=== PATIENT | male | born 1985 | race Caucasian/White ===

== ENCOUNTER 2017-07-04 17:49 | Emergency (ER) | payer OTHER ==
[~2017-07-04] VITALS: Ht 175.3 cm; Wt 68.0 kg
[~2017-07-04 17:49] MED LIST: NORCO 5-325 TA1 EACH PO
[2017-07-04] MEDS ORDERED: BUTALB-ACETAMI1 EACH PO (18:07)
[2017-07-04] MEDS ORDERED: AMANTADINE100 MG PO (18:07)
[2017-07-04] MEDS ORDERED: LEVETIRACETAM500 MG PO (18:08)
[2017-07-04] MEDS ORDERED: TRAZODONE HCL50 MG PO (18:08)
[2017-07-04] MEDS ORDERED: CITALOPRAM HBR20 MG PO (18:08)
[2017-07-04] MEDS ORDERED: MELATONIN1 MG PO (18:09)
[2017-07-04] MEDS ORDERED: NORCO 5-325 TA1 EACH PO (20:37)
== END 2017-07-04 20:50 | disposition home or self-care (01) ==
LOC: ED 17:49
DX: S09.90XA Unspecified injury of head, initial encounter (principal); W22.8XXA Striking against or struck by other objects, initial encounter; Z87.891 Personal history of nicotine dependence; Z79.899 Other long term (current) drug therapy
CPT/HCPCS: 70450; 80053; 81001; 83605; 85025; 85610; 85730; 96361; 96374; 99284; G0480; J2405; J7030

== ENCOUNTER 2018-03-18 14:12 | Emergency (ER) | payer OTHER ==
[~2018-03-18] VITALS: Ht 175.3 cm; Wt 90.7 kg
[~2018-03-18 14:12] MED LIST changes: +AMANTADINE100 MG PO; +BUTALB-ACETAMI1 EACH PO; +CITALOPRAM HBR20 MG PO; +LEVETIRACETAM500 MG PO; +MELATONIN1 MG PO; +TRAZODONE HCL50 MG PO
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
--- OUTSIDE RECORDS SUMMARY | 2018-03-18 14:40 | XMS | Clinical Summary ---
Demographics + + + | Address | [address] | | | [place] [address] | + + + | Home Phone | | + + + | Preferred Language | Unknown | + + + | Marital Status | | + + + | Sikh Affiliation | Unknown | + + + | Race | Unknown | + + + | Ethnic Group | Unknown | + + + Author + + + | Author | [facility] [employer] | + + + | Organization | [facility] [employer] | + + + | Address [...] Team Providers + +------+ + | Care Planner Intern Name | Role | Phone | + [...] 03/22/20 | | | Staphylococcus aureus (MSSA) ([facility]) | 17 | 7 | + + + + | Acute subdural hematoma (HCC) | 03/18/20 | | | | 17 | 7 | + + + + | Doerun coma scale total score 3-8 (HCC) | [...] | [place] - [place] | | | /[id number] | | MD | | | | [...] | | N | | | | [place] | | | [place] | | | | [phone] | | | VAT TENDER | | | | | + +--------+ [...] | 1985 | [phone] | [place] [address] | | | josh | | | [phone] | | + +--------+ +--------+ + +
--- OUTSIDE RECORDS SUMMARY | 2018-03-18 14:40 | XMS | Encounter Summary ---
Demographics + + + | Address | [address] | | | [place] [address] | + + + | Home Phone | | + + + | Preferred Language | Unknown | + + + | Marital Status | | + + + | Congregation Affiliation | Unknown | + + + | Race | Unknown | + + + | Ethnic Group | Unknown | + + + Author + + + | Author | [facility] [employer] [facility] | + + + | Organization | [facility] [employer] [facility] | + + + | Address | Unknown | + + + | Phone | Unavailable | + + + Support + + +---------+ + | Name | Relationship | Address | Phone | + + +---------+ + | Shalini Mcgovern | ECON | Unknown | | + + +---------+ + | Byron Mcgovern | ECON | Unknown | | + + +---------+ + Care Team Providers + +------+ + | Care Washtub Worker Name | Role | Phone | + +------+ + | Shilpa Iglesias | PCP | Unavailable | + +------+ + Reason for Visit +--------+ + | Reason | Comments | +--------+ + | Other | OTHER- [facility] | +--------+ + Encounter Details +--------+ + + + + | Date | Type | Department | Care Team | Description | +--------+ + + + + | 02/05/ | Documentati | Alexys | Perr[facility] | Other (OTHER- | | 2018 | on Only | [facility] | | [facility] | | | | [address] | | [place]) | | | | [place] | | | | | | [address] | | | | | | [phone] | | | +--------+ + + + + Social History + +-------+ +--------+------+ | Tobacco Use | Types | Packs/Day | Years | Date | | | | | Used | | + +-------+ +--------+------+ | Former Smoker | | 0.5 | | | + +-------+ +--------+------+ + +---+---+---+ | Smokeless Tobacco: | | | | | Former User | | | | + +---+---+---+ + + +---------+ + | Alcohol Use | Drinks/We | oz/Week | Comments | | | ek | | | + + +---------+ + | Yes | | | | + + +---------+ + + + + | Sex Assigned at | Date Recorded | | | | + + + | Not on file | | + + + as of this encounter Plan of Treatment Not on fileas of this encounter Visit Diagnoses Not on filein this encounter"
--- OUTSIDE RECORDS SUMMARY | 2018-03-18 14:40 | XMS | Encounter Summary ---
Demographics + + + | Address | [address] | | | [place] [address] | + + + | Home Phone | | + + + | Preferred Language | Unknown | + + + | Marital Status | | + + + | Sabianist Affiliation | Unknown | + + + | Race | Unknown | + + + | Ethnic Group | Unknown | + + + Author + + + | Author | [facility] | + + + | Organization | [facility] | + + + | Address [...] Team Providers + +------+ + | Care Endless Belt Finisher Name | Role | Phone | + +------+ + | Shilpa Iglesias | PCP | Unavailable | + +------+ + Reason for Visit +--------+ + | Reason | Comments | +--------+ + | Other | OTHER- [facility] | +--------+ + Encounter Details +--------+ + + + + | Date | Type | Department | Care Team | Description | +--------+ + + + + | 02/05/ | Documentati | Alexys | Perrin[facility] | Other (OTHER- | | 2018 | on Only | [facility] | | [facility] | | | | [address] | | [place]) | | | | [place] | | | | | | [address] | | | | | | [phone] | | | +--------+ + + + [...]
[2018-03-18] MEDS ORDERED: KEPPRA1000 MG PO (17:12)
== END 2018-03-18 17:27 | disposition home or self-care (01) ==
LOC: ED 14:12
DX: S00.03XA Contusion of scalp, initial encounter (principal); R56.9 Unspecified convulsions; Z87.891 Personal history of nicotine dependence; Z86.73 Personal history of transient ischemic attack (TIA), and cerebral infarction without residual deficits; W18.30XA Fall on same level, unspecified, initial encounter
CPT/HCPCS: 70450; 80053; 85025; 96374; 99284; J1953

== ENCOUNTER 2019-10-03 22:02 | Emergency (ER) | payer MEDICARE ==
[~2019-10-03] VITALS: Ht 177.8 cm; Wt 86.2 kg
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
--- OUTSIDE RECORDS SUMMARY | ~2019-10-03 | XMS | Clinical Summary ---
Demographics + + + | Address | [address] | | | [place] [address] | + + + | Home Phone | | + + + | Preferred Language | Unknown | + + + | Marital Status | | + + + | Buddhist Affiliation | Unknown | + + + | Race | Unknown | + + + | Ethnic Group | Unknown | + + + Author + + + | Author | [facility] [employer] [facility] (Historical as of | | | 07-15-19) | + + + | Organization | [facility] (Historical as of | | | 07-15-19) | + + + | Address | [...] Team Providers + +------+ + | Care Commercial Relief Driver Name | Role | Phone | + +------+ + | Shilpa Iglesias | PP | Unavailable | + +------+ [...] | as needed (for | | | 7/20 | | e | | oral solution | serum potasium 3.8 | | | 17 | | | | | to 4). | | | | | | + + + +---------+------+------+-------+ | petrolatum | Place into both | 3.5 g | 12 | 05/1 | | Activ | | (SANA P.MKarrie) | eyes as needed for | | | 7/20 | | e | | ophthalmic ointment | Dry Eyes. | | | 17 | | | + + + +---------+------+------+-------+ | albuterol | Take 3 mLs by | 75 mL | 12 | 05/1 | | Activ | | (PROVENTIL) (2.5 | nebulization every 4 | | | 7/20 | | e | | MG/3ML) 0.083% | (four) hours as | | | 17 | | | | nebulizer solution | needed for Wheezing. | | | | | | + + + +---------+------+------+-------+ | citalopram | Take 1 tablet by | 30 | 11 | 05/1 | | Activ | | (CELEXA) 10 MG | mouth daily. | tablet | | 7/20 | | [...] + + | Seizure after head injury (HCC) | 04/12/2018 | + + + | [...] 03/22/20 | | | Staphylococcus aureus (MSSA) ([facility]) | 17 | 7 | + + + + | Acute subdural hematoma (HCC) | 03/18/20 | | | | 17 | 7 | + + + + | Aida coma scale total score 3-8 (HCC) | [...] | +--------+ + + + + | 07/10/ | Documentati | | Donald Anderson MD | Other (Outside | | 2019 | on Only | | | Medical | | | | | | Records-Imaging, | | | | | | Reports, etc) | +--------+ + + + + from [...] + | Blood Pressure | 156/76 | 04/12/2018 12:07 PM PDT | + + + + | Pulse | 96 | 04/12/2018 12:07 PM PDT | + + + + | [...] Weight | 83.9 kg (185 lb) | 04/12/2018 12:07 PM PDT | + + + + | Height | 177.8 cm (5' 10") | 04/12/2018 12:07 PM PDT | + + + + | Body Mass Index | 26.54 | 04/12/2018 12:07 PM PDT | + + + + Plan [...] | [place] - [place] | | | /[id number] | | MD | | | | [...] +------+-------+ + | MEDICAID | [employer] | [id number] | | | [address] | | | N | | | | [place] | | | [place] | | | | [phone] | | | 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
--- OUTSIDE RECORDS SUMMARY | ~2019-10-03 | XMS | Encounter Summary ---
Demographics + + + | Address | [address] | | | [place] [address] | + + + | Home Phone | | + + + | Preferred Language | Unknown | + + + | Marital Status | | + + + | Pentecostalism Affiliation | Unknown | + + + | Race | Unknown | + + + | Ethnic Group | Unknown | + + + Author + + + | Author | [facility] [employer] [facility] (Historical as of | | | 07-15-19) | + + + | Organization | [place] (Historical as of | | | 07-15-19) [...] Team Providers + +------+ + | Care Senior Architectural Designer Name | Role | Phone | + +------+ + | Shilpa Iglesias | PCP | Unavailable | + +------+ + Reason for Visit +--------+ + | Reason | Comments | +--------+ + | Other | Outside Medical Records-Imaging, Reports, etc | +--------+ + Encounter Details +--------+ + + + + | Date | Type | Department | Care Team | Description | +--------+ + + + + | 07/10/ | Documentati | [facility] | Donald Anderson MD | Other (Outside | | 2019 | on Only | [facility] | [address] | Medical | | | | [address] | Drive [place], [place] | Records-Imaging, | | | | [place], [place] | [address] | Reports, etc) | | | | [address] | | | | | | [phone] | | | +--------+ + + + [...]
--- OUTSIDE RECORDS SUMMARY | ~2019-10-03 | XMS | Clinical Summary ---
Demographics + + + | Address | [address] | | | [place] [address] | + + + | Home Phone | | + + + | Preferred Language | Unknown | + + + | Marital Status | | + + + | Jewish Affiliation | Unknown | + + + | Race | Unknown | + + + | Ethnic Group | Unknown | + + + Author + + + | Author | [facility] (Historical as of | | | 07-15-19) | + + + | Organization | [facility] (Historical as of | | | [...] Team Providers + +------+ + | Care Air Conditioning Engineer Name | Role | Phone | + [...] 03/22/20 | | | Staphylococcus aureus (MSSA) ([facility]) | 17 | 7 | [...] | [place] - [place] | | | /[id number] | | MD | | | | [...] +------+-------+ + | MEDICAID | [employer] | [id number] | | | [address] | | | N | | | | [place] | | | [place] | | | | [address] | | | STATISTICS MANAGER | | | | | + +--------+ +------+-------+ + + +--------+ +--------+ + + | Guarantor Name | Accoun | Relation to | Date | Phone | Billing Address | | | t Type | Patient | of | | | | | | | | | | + +--------+ +--------+ + + | KETAON ASHLEY | Person | Self | [birth year] | Home: | [address] | | | al/[place] | | 1985 | [phone] | [place] [address] | | | josh | | | [phone] | | + +--------+ +--------+ + +
--- OUTSIDE RECORDS SUMMARY | ~2019-10-03 | XMS | Clinical Summary ---
Demographics + + + | Address | [address] | | | [place] [address] | + + + | Home Phone | | + + + | Preferred Language | Unknown | + + + | Marital Status | | + + + | Anabaptist Affiliation | Unknown | + + + | Race | Unknown | + + + | Ethnic Group | Unknown | + + + Author + + + | Author | [facility] | | | and [place] | + + + | Organization | [facility] | | | and [...] Team Providers + +------+ + | Care Energy Professional Name | Role | Phone | + [...] | [place] | | | /[id number] | | MD | | | | | | 96 | + +------+--------+ +--------+--------+--------+ Results Not on filefrom Last 3 Months
--- OUTSIDE RECORDS SUMMARY | ~2019-10-03 | XMS | Encounter Summary ---
Demographics + + + | Address | [address] | | | [place] [address] | + + + | Home Phone | | + + + | Preferred Language | Unknown | + + + | Marital Status | | + + + | Catholic Affiliation | Unknown | + + + | Race | Unknown | + + + | Ethnic Group | Unknown | + + + Author + + + | Author | [facility] (Historical as of | | | 07-15-19) | + + + | Organization | [facility] (Historical as of | | | [...] Team Providers + +------+ + | Care Domestic Cleaner Name | Role | Phone | + [...] + + | 07/10/ | Documentati | [facility] | Donald Anderson MD | Other (Outside | | 2019 | on Only | [facility] | [address] | Medical | | | | [address] | Drive [place], [place] | Records-Imaging, | | | | [place], [place] | [address] | Reports, etc) | | | | [address] | | | | | | [phone] | | | +--------+ + + + [...]
[~2019-10-03 22:02] MED LIST changes: +KEPPRA1000 MG PO
[2019-10-03] MEDS ORDERED: NORCO 5-325 TA1 EACH PO (23:18)
== END 2019-10-03 23:35 | disposition home or self-care (01) ==
LOC: ED 22:02
DX: S01.512A Laceration without foreign body of oral cavity, initial encounter (principal); G40.909 Epilepsy, unspecified, not intractable, without status epilepticus; X58.XXXA Exposure to other specified factors, initial encounter; Z87.891 Personal history of nicotine dependence; Z79.899 Other long term (current) drug therapy
CPT/HCPCS: 99283

== ENCOUNTER 2021-04-22 11:09 | Emergency (ER) | payer MEDICARE, MEDICAID ==
[~2021-04-22] VITALS: Ht 177.8 cm; Wt 83.9 kg
[~2021-04-22 11:09] MED LIST changes: +KEFLEX500 MG PO
== END 2021-04-22 14:54 | disposition home or self-care (01) ==
LOC: ED 11:09
DX: G40.909 Epilepsy, unspecified, not intractable, without status epilepticus (principal)
CPT/HCPCS: 80048; 80053; 81001; 85025; 96365; 99285-25; J1953; J7030

== ENCOUNTER 2021-11-02 02:38 | Emergency (ER) | payer MEDICARE, MEDICAID ==
[~2021-11-02] VITALS: Ht 177.8 cm; Wt 83.9 kg
--- NOTE | 2021-11-02 17:16 | EKG ---
[facility] [address] [place], [place] [address] Signed Sinus tachycardia Otherwise normal ECG No previous ECGs available Confirmed by DIANA MCCANN MD ([id number]) on 11/02/2021 5:16:33 PM Electronically Signed By: DIANA MCCANN MD 11/02/21 1716 PATIENT NAME: NETTE ASHLEY TIFFANIE Electrocardiogram DATE OF : [birth year] PHYSICIAN: DIANA MCCANN MD REPORT #: [id number] REPORT IS CONFIDENTIAL AND NOT TO BE RELEASED WITHOUT AUTHORIZATION
== END 2021-11-02 06:40 | disposition home or self-care (01) ==
LOC: ED 02:38
DX: G40.909 Epilepsy, unspecified, not intractable, without status epilepticus (principal); F10.129 Alcohol abuse with intoxication, unspecified; E87.6 Hypokalemia; Z79.899 Other long term (current) drug therapy
CPT/HCPCS: 70450; 72125; 80048; 80053; 83735; 85025; 93005; 93010; 96374; 96375; 96376; 99284-25; J1953; J2060; J7030; J7040

== ENCOUNTER 2022-06-14 10:53 | Emergency (ER) | payer MEDICARE, MEDICAID ==
[~2022-06-14] VITALS: Ht 182.9 cm; Wt 81.7 kg
--- NOTE | ~2022-06-14 | EKG ---
[facility] [address] [facility] [place], [place] [address] Draft EK completed, results pending confirmation PATIENT NAME: NETTE ASHLEY Electrocardiogram DATE OF : 87 PHYSICIAN: PRELIMINARY REPORT #: [id number] REPORT IS CONFIDENTIAL AND NOT TO BE RELEASED WITHOUT AUTHORIZATION
== END 2022-06-14 15:46 | disposition home or self-care (01) ==
LOC: ED 10:53
DX: G40.909 Epilepsy, unspecified, not intractable, without status epilepticus (principal); S01.512A Laceration without foreign body of oral cavity, initial encounter; X58.XXXA Exposure to other specified factors, initial encounter; Z79.899 Other long term (current) drug therapy; Z20.822 Contact with and (suspected) exposure to COVID-19; Z91.14 Patient's other noncompliance with medication regimen
CPT/HCPCS: 36415; 71045; 80053; 80164; 81001; 85025; 87502; 93005; 93010; C9803; J1953; J2060; J2405; J7030; U0003

== ENCOUNTER 2022-08-14 07:16 | Emergency (ER) | payer MEDICARE, MEDICAID ==
[~2022-08-14] VITALS: Ht 182.9 cm; Wt 81.7 kg
== END 2022-08-14 09:41 | disposition home or self-care (01) ==
LOC: ED 07:16
DX: G40.909 Epilepsy, unspecified, not intractable, without status epilepticus (principal); Z79.899 Other long term (current) drug therapy
CPT/HCPCS: 36415; 80053; 85025; 99284; G0480; J7040

== ENCOUNTER 2022-09-10 07:15 | Emergency (ER) | payer MEDICARE, MEDICAID ==
[~2022-09-10] VITALS: Ht 182.9 cm; Wt 81.7 kg
--- OUTSIDE RECORDS SUMMARY | 2022-09-10 07:20 | XMS ---
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 Care History Medical/Surgical 04/22/2021 [facility] - Patient is currently established with [facility]. If patient is seen in the ED during business hours. Please contact CHWs at [facility]. Care Recommendation: If this patient has had 5 or more Emergency Department visits in the last 12 months.\T\nbsp; Patient will require education on the scope and purpose of the ED as an acute care provider not a Primary Care Provider and should not be utilized for chronic conditions.\T\nbsp; These are guidelines and the provider should exercise clinical judgment when providing care. E.D. VISIT COUNT (12 MO.) 5 [facility] TOTAL 5 NOTE: Visits indicate total known visits. ED/C VISIT TRACKING (12 MO.) 09/10/2022 07:[address] [facility] [place] TYPE: Emergency COMPLAINT: - SEIZURE 08/14/2022 07:[address] [facility] [place] TYPE: Emergency COMPLAINT: - SEIZURE DIAGNOSES: - Epilepsy, unspecified, not intractable, without status epilepticus - Other residential (current) drug therapy - Unspecified convulsions 06/14/2022 10:54 [facility] [place] TYPE: Emergency COMPLAINT: - SEIZURE DIAGNOSES: - Laceration without foreign body of oral cavity, initial encounter - Patient's other noncompliance with medication regimen - Exposure to other specified factors, initial encounter - Unspecified convulsions - Contact with and (suspected) exposure to COVID-19 - Epilepsy, unspecified, not intractable, without status epilepticus - Other residential (current) drug therapy 03/22/2022 13:58 [facility] [place] TYPE: Emergency COMPLAINT: - POSS SEIZURE DIAGNOSES: - Epilepsy, unspecified, not intractable, with status epilepticus - Contact with and (suspected) exposure to COVID-19 - Other lobsterman (current) drug therapy 11/02/2021 02:38 [facility] [place] TYPE: Emergency COMPLAINT: - SEIZURE DIAGNOSES: - Epilepsy, unspecified, not intractable, without status epilepticus - Alcohol abuse with intoxication, unspecified - Other lobsterman (current) drug therapy - Hypokalemia - Unspecified convulsions INPATIENT VISIT TRACKING (12 MO.) 03/22/2022 20:44 [facility] [place] TYPE: Neurology DIAGNOSES: - Laceration without foreign body of oral cavity, initial encounter - Acute respiratory failure with hypercapnia - Alcohol abuse, uncomplicated - Elevation of levels of liver transaminase levels - Unspecified foreign body in respiratory tract, part unspecified causing other injury, initial encounter - Acute respiratory failure with hypoxia - Unspecified intracranial injury with loss of consciousness of unspecified duration, initial encounter - Alcohol dependence with withdrawal with perceptual disturbance - Post traumatic seizures - Epilepsy, unspecified, not intractable, with status epilepticus [email or web address]
[2022-09-10] MEDS ORDERED: LACOSAMIDE100 MG PO (12:32)
[2022-09-10] MEDS ORDERED: TRAZODONE HCL50 MG NG (12:32)
[2022-09-10] MEDS ORDERED: ACAMPROSATE CA333 MG PO (12:32)
[2022-09-10] MEDS ORDERED: METOPROLOL TART25 MG PO (12:33)
[2022-09-10] MEDS ORDERED: KEPPRA750 MG PO (12:50)
[2022-09-10] MEDS ORDERED: VIMPAT100 MG PO (12:50)
== END 2022-09-10 13:10 | disposition home or self-care (01) ==
LOC: ED 07:15
DX: G40.909 Epilepsy, unspecified, not intractable, without status epilepticus (principal); F10.10 Alcohol abuse, uncomplicated; Z79.899 Other long term (current) drug therapy
CPT/HCPCS: 36415; 80053; 80164; 85025; 96374; 96375; 99284-25; G0480; J1953; J2060; J2405; J7030

== ENCOUNTER 2022-11-02 08:41 | Emergency (ER) | payer MEDICARE, MEDICAID ==
[~2022-11-02] VITALS: Ht 182.9 cm; Wt 81.7 kg
[~2022-11-02 08:41] MED LIST changes: +ACAMPROSATE CA333 MG PO; +KEPPRA750 MG PO; +LACOSAMIDE100 MG PO; +METOPROLOL TART25 MG PO; +TRAZODONE HCL50 MG NG; +VIMPAT100 MG PO
--- NOTE | 2022-11-04 23:10 | EKG ---
[facility] [address] [place] [address] Signed Sinus tachycardia Otherwise normal ECG When compared with ECG of 14-JUN-2022 10:59, No significant change was found Confirmed by Lorena Pettit MD () on 11/04/2022 11:10:16 PM Electronically Signed By: LORENA PETTIT MD 11/04/22 2310 PATIENT NAME: NETTE ASHLEY TIFFANIE Electrocardiogram DATE OF : 87 PHYSICIAN: LORENA PETTIT MD REPORT #: [id number] REPORT IS CONFIDENTIAL AND NOT TO BE RELEASED WITHOUT AUTHORIZATION
== END 2022-11-02 12:55 | disposition home or self-care (01) ==
LOC: ED 08:41
DX: U07.1 COVID-19 (principal); G40.909 Epilepsy, unspecified, not intractable, without status epilepticus; Z79.899 Other long term (current) drug therapy
CPT/HCPCS: 36415; 80053; 85025; 87502; 93005; 93010; 96374; 96375; 99284-25; C9803; J1953; J2060; U0003

== ENCOUNTER 2023-01-11 07:30 | Emergency (ER) | payer MEDICARE, MEDICAID, OTHER ==
[~2023-01-11] VITALS: Ht 182.9 cm; Wt 81.7 kg
[~2023-01-11 07:30] MED LIST changes: +DEPAKOTE250 MG PO; +DEPAKOTE500 MG PO
--- OUTSIDE RECORDS SUMMARY | 2023-01-11 07:38 | XMS ---
PreManage Notification: NETTE ASHLEY Security [employer] Events No recent Security Events currently on file CRITERIA MET - [facility] - 2 Visits in 30 Days CARE PROVIDERS BRANDY DARBY [facility] 04/22/2021-Current PHONE: Unknown Dann has no Care Guidelines for this patient. Care History Medical/Surgical 04/22/2021 [facility] - Patient is currently established with [facility] [place]. If patient is seen in the ED during business hours. Please contact CHWs at [facility] [place]. Care Recommendation: If this patient has had [...] providing care. E.D. VISIT COUNT (12 MO.) 7 [facility] TOTAL 7 NOTE: Visits indicate total known visits. ED/UCC VISIT TRACKING (12 MO.) 01/11/2023 07:31 [facility] [place] TYPE: Emergency COMPLAINT: - MOUTH WOUND 01/10/2023 11:54 [facility] [place] TYPE: Emergency COMPLAINT: - SEIZURE 11/02/2022 08:41 [facility] [place] TYPE: Emergency COMPLAINT: - SEIZURE DIAGNOSES: - COVID-19 - Epilepsy, unspecified, not intractable, without status epilepticus - Other usp (current) drug therapy 09/10/2022 07:16 [facility] [place] TYPE: Emergency COMPLAINT: - SEIZURE DIAGNOSES: - Epilepsy, unspecified, not intractable, without status epilepticus - Other usp (current) drug therapy - Alcohol abuse, uncomplicated 08/14/2022 07:16 [facility] [place] [facility] TYPE: Emergency COMPLAINT: - SEIZURE DIAGNOSES: - Unspecified convulsions - Epilepsy, unspecified, not intractable, without status epilepticus - Other usp (current) drug therapy 06/14/2022 10:54 [facility] [place] TYPE: Emergency COMPLAINT: - SEIZURE DIAGNOSES: - Contact with and (suspected) exposure to COVID-19 - Epilepsy, unspecified, not intractable, without status epilepticus - Other usp (current) drug therapy - Laceration without foreign body of oral cavity, initial encounter - Patient's other noncompliance with medication regimen - Exposure to other specified factors, initial encounter - Unspecified convulsions 03/22/2022 13:58 [facility] [place] TYPE: Emergency COMPLAINT: - POSS SEIZURE DIAGNOSES: - Other watermelon inspector (current) drug therapy - Epilepsy, unspecified, not intractable, with status epilepticus - Contact with and (suspected) exposure to COVID-19 INPATIENT VISIT TRACKING (12 MO.) 03/22/2022 20:44 [facility] [place] TYPE: Neurology DIAGNOSES: - Unspecified intracranial injury with loss of consciousness of unspecified duration, initial encounter - Alcohol dependence with withdrawal with perceptual disturbance - Post traumatic seizures - Epilepsy, unspecified, not intractable, with status epilepticus - Laceration without foreign body of oral cavity, initial encounter - Acute respiratory failure with hypercapnia - Alcohol abuse, uncomplicated - Elevation of levels of liver transaminase levels - Unspecified foreign body in respiratory tract, part unspecified causing other injury, initial encounter - Acute respiratory failure with hypoxia [email or web address]
[2023-01-11] MEDS ORDERED: CHLORDIAZEPOXID25 MG PO (11:01)
== END 2023-01-11 11:32 | disposition home or self-care (01) ==
LOC: ED 07:30
DX: F10.939 Alcohol use, unspecified with withdrawal, unspecified (principal); G40.909 Epilepsy, unspecified, not intractable, without status epilepticus; S01.512A Laceration without foreign body of oral cavity, initial encounter; X58.XXXA Exposure to other specified factors, initial encounter; Z79.899 Other long term (current) drug therapy
CPT/HCPCS: 36415; 80048; 85025; J2060; J7030